=== PATIENT | female | born 1965 | race Caucasian/White ===

== ENCOUNTER 2016-12-27 13:32 | Emergency (ER) | payer MEDICARE ==
[~2016-12-27] VITALS: Ht 170.2 cm; Wt 114.7 kg
[2016-12-27 13:34] VITALS: TEMP 97.5
[2016-12-27] MEDS ORDERED: EFFEXOR-XR150 MG PO ×2 (14:19→15:25)
[2016-12-27] MEDS ORDERED: WELLBUTRIN XL150 MG PO ×2 (14:19→15:25)
[2016-12-27] MEDS ORDERED: DESYREL 100MG100 MG PO (14:20)
[2016-12-27 14:54] VITALS: BP 121/71; PULSE 85
[2016-12-27] MEDS ORDERED: WELLBUTRIN XL300 M1 PO (15:25)
[2016-12-27] MEDS ORDERED: DOXYCYCLINE 10100 MG PO (15:25)
[2016-12-27] MEDS ORDERED: EFFEXOR XR75 MG/CAP PO (15:25)
== END 2016-12-27 15:35 | disposition other institution (70) ==
LOC: COL.ER 13:32
DX: L03.113 Cellulitis of right upper limb (principal); L02.413 Cutaneous abscess of right upper limb; F32.9 Major depressive disorder, single episode, unspecified

== ENCOUNTER 2017-05-31 17:13 | Emergency (ER) | payer MEDICARE ==
[~2017-05-31] VITALS: Ht 170.2 cm; Wt 116.8 kg
[~2017-05-31 17:13] MED LIST: DESYREL 100MG100 MG PO; DOXYCYCLINE 10100 MG PO; EFFEXOR XR75 MG/CAP PO; EFFEXOR-XR150 MG PO; WELLBUTRIN XL150 MG PO; WELLBUTRIN XL300 M1 PO
[2017-05-31 17:21] VITALS: BP 142/65; PULSE 89; TEMP 98.3
== END 2017-05-31 19:05 | disposition home or self-care (01) ==
LOC: COL.ER 17:13
DX: S92.511A Displaced fracture of proximal phalanx of right lesser toe(s), initial encounter for closed fracture (principal); F32.9 Major depressive disorder, single episode, unspecified; F60.3 Borderline personality disorder; X50.1XXA Overexertion from prolonged static or awkward postures, initial encounter; Y92.009 Unspecified place in unspecified non-institutional (private) residence as the place of occurrence of the external cause

== ENCOUNTER 2017-07-21 11:00 | Outpatient (RCR) | payer MEDICARE | END 2017-10-12 | disposition home or self-care (01) | LOC: MKS.ESL.PT | DX: M25.512 Pain in left shoulder (principal) | CPT/HCPCS: G8978-GP; G8979-GP ==